=== PATIENT | male | born 1935 | race Caucasian/White ===

== ENCOUNTER → 2016-07-14 | Outpatient (CLI) | payer BC | END | disposition home or self-care (01) | LOC: PCVCIMAG 10:34 | PROVIDERS: ATTEND Internal Medicine Cardiovascular Disease | DX: I10 Essential (primary) hypertension (principal); E78.5 Hyperlipidemia, unspecified | CPT/HCPCS: 76770; 93975 ==

== ENCOUNTER → 2016-11-03 | Outpatient (CLI) | payer BC | END | disposition home or self-care (01) | LOC: PCVCIMAG 08:36 | PROVIDERS: ATTEND Internal Medicine Cardiovascular Disease | DX: I35.0 Nonrheumatic aortic (valve) stenosis (principal); I34.0 Nonrheumatic mitral (valve) insufficiency; I77.9 Disorder of arteries and arterioles, unspecified; I10 Essential (primary) hypertension; E78.5 Hyperlipidemia, unspecified; I45.9 Conduction disorder, unspecified; Z95.0 Presence of cardiac pacemaker | CPT/HCPCS: 80061; 93005; 93306; G0463 ==

== ENCOUNTER → 2017-12-05 | Outpatient (CLI) | payer BC | LOC: PCVCIMAG 14:35 | DX: I08.8 Other rheumatic multiple valve diseases (principal); I45.5 Other specified heart block; Z95.0 Presence of cardiac pacemaker; E78.5 Hyperlipidemia, unspecified; I10 Essential (primary) hypertension | CPT/HCPCS: 93306 ==

== ENCOUNTER → 2019-02-19 | Outpatient (CLI) | payer BC ==
--- NOTE | 2019-02-19 16:56 | PCVCIMAG ---
APPROVED REPORT Study performed: 02/19/2019 08:51:02 EXAM: Comprehensive 2D, Doppler, and color-flow Echocardiogram Patient Location: Echo lab Room #: 3Status: routine BSA: 1.86 HR: 63 bpmBP: 142/46 mmHg Rhythm: Pacemaker Other Information Study Quality: Good Risk Factors: Cardiac Risk Factors: HTN, Hyperlipidemia Indications Aortic Valve Disease Pacemaker Hypertension/HDD Hx: complete heart block, SSS,pacemaker 2D Dimensions IVSd: 12.00 (7-11mm)LVOT Diam: 20.94 (18-24mm) LVDd: 53.99 mm PWd: 8.11 (7-11mm)Ascending Ao: 30.78 (22-36mm) LVDs: 34.90 (25-40mm) Left Atrium: 44.30 (27-40mm) Aortic Root: 23.34 mm LV Single Plane 4CH: 60.80 % LV Single Plane 2CH: 54.99 % Biplane EF: 56.4 % Volumes Left Atrial Volume (Systole) Single Plane 4CH: 100.77 mLSingle Plane 2CH: 56.74 mL Biplane LA Volume: 79.00 mLLA ESV Index: 43.00 mL/m2 Aortic Valve AoV Peak Satnam.: 3.97 m/s AO Peak Gr.: 68.09 mmHgLVOT Max P.55 mmHg AO Mean Gr.: 40.24 mmHgLVOT Mean P.42 mmHg AO V2 Mean: 3.06 m/sLVOT Max V: 1.06 m/s AO V2 VTI: 110.10 cmLVOT Mean V: 0.72 m/s SHARON (VTI): 0.85 [id number] VTI: 27.07 cm SHARON Vmax: 0.92 cm2 AI Vmax: 4.05 m/sSV (LVOT): 93.19 mL AI Charlton: 5.08 m/s2 AI PHT: 231.69 ms Mitral Valve E/A Ratio: 2.3 MV Decel. Time: 127.42 ms MV E Max Satnam.: 1.04 m/s MV A Satnam.: 0.45 m/s MV Max Satnam.: 5.60 m/s MV Mean Satnam.: 4.25 m/s IVRT: 72.66 ms TDI E/Lateral E': 10.40E/Medial E': 14.86 Medial E' Satnam.: 0.07 m/s Lateral E' Satnam.: 0.10 m/s Pulmonary Valve PV Peak Satnam.: 0.94 m/sPV Peak Gr.: 3.53 mmHg Tricuspid Valve TR Peak Satnam.: 2.86 m/s TR Peak Gr.: 32.67 mmHg TV Vmax: 0.46 m/sPA Pressure: 40.00 mmHg Left Ventricle The left ventricle is normal size. There is normal LV segmental wall motion. There is normal left ventricular wall thickness. Left ventricular systolic function is normal. The left ventricular ejection fraction is within the normal range. LVEF is 55-60%. Findings suggest the left atrial pressure is elevated. Right Ventricle The right ventricle is normal size. The right ventricular systolic function is normal. Atria Left atrium is moderately dilated. The right atrium size is normal. Aortic Valve Aortic valve is probably trileaflet. Severe aortic valve sclerosis. Aortic valve leaflets are thickened and calcified. Moderate to severe aortic regurgitation Severe aortic stenosis. Highest mean aortic valve gradient is 40_mmHg. Peak aortic valve gradient is 63_mmHg. Calculated SHARON by the continuity equation is _0.9-1.0 cm2. Mitral Valve The mitral valve is normal in structure. Moderate mitral regurgitation. No evidence of mitral valve stenosis. Tricuspid Valve The tricuspid valve is normal in structure. Mild to moderate tricuspid regurgitation with a PA pressure of 40 mmHg. Moderate pulmonary hypertension. Pulmonic Valve The pulmonary valve is normal in structure. Trace to mild pulmonic regurgitation. Great Vessels The aortic root is normal in size. The ascending aorta is normal in size. Aortic arch is normal in caliber. IVC is normal in size and collapses >50% with inspiration. Pericardium There is no pericardial effusion. There is no pleural effusion. <Conclusion> The left ventricle is normal size. LVEF is 55-60%. Findings suggest the left atrial pressure is elevated. The right ventricle is normal size. Left atrium is moderately dilated. Aortic valve is probably trileaflet. Severe aortic valve sclerosis. Aortic valve leaflets are thickened and calcified. Moderate to severe aortic regurgitation Severe aortic stenosis. Highest mean aortic valve gradient is 40_mmHg. Peak aortic valve gradient is 63_mmHg. Calculated SHARON by the continuity equation is _0.9-1.0 cm2. Moderate mitral regurgitation. Mild to moderate tricuspid regurgitation with a PA pressure of 40 mmHg. Moderate pulmonary hypertension. The aortic root is normal in size. There is no pericardial effusion.
== END | disposition home or self-care (01) ==
LOC: PCVCIMAG 08:55
PROVIDERS: ATTEND Internal Medicine Cardiovascular Disease
DX: I08.3 Combined rheumatic disorders of mitral, aortic and tricuspid valves (principal); E78.5 Hyperlipidemia, unspecified; I45.9 Conduction disorder, unspecified; I49.5 Sick sinus syndrome; I10 Essential (primary) hypertension; I27.20 Pulmonary hypertension, unspecified; I77.9 Disorder of arteries and arterioles, unspecified; E78.00 Pure hypercholesterolemia, unspecified; F03.90 Unspecified dementia, unspecified severity, without behavioral disturbance, psychotic disturbance, mood disturbance, and anxiety; Z95.0 Presence of cardiac pacemaker; Z72.89 Other problems related to lifestyle; Z79.82 Long term (current) use of aspirin; Z79.899 Other long term (current) drug therapy
CPT/HCPCS: 93306